=== PATIENT | female | born 1970 | race Caucasian/White ===

== ENCOUNTER 2022-12-03 17:27 | Emergency (ER) | payer BC ==
[~2022-12-03] VITALS: Ht 165.1 cm; Wt 83.9 kg
[2022-12-03 19:32] LABS: BASOPHILS % (AUTO) 0.2 % (0.0-5.0); EOSINOPHILS % (AUTO) 0.1 % (0.0-8.0); HEMATOCRIT 40.5 % (36-48); MEAN CORPUSCULAR HEMOGLOBIN 33.7 pg (27.0-33.0); MEAN CORPUSCULAR HGB CONC 34.6 g/dL (32.0-36.0); MEAN CORPUSCULAR VOLUME 97.6 fL (79-99); MONOCYTES % (AUTO) 4.9 % (3.0-13.0); NEUTROPHILS % (AUTO) 85.1 % (40.0-77.0); PLATELET COUNT (AUTO) 314 K/uL (130-400); RED BLOOD CELL COUNT(AUTO) 4.15 MIL/uL (4.00-5.50); RED CELL DISTRIBUTION WIDTH 12.5 % (11.0-15.5); WHITE BLOOD COUNT (AUTO) 17.4 K/uL (4.8-10.8)
[2022-12-03 19:41] LABS: CREATININE 0.9 mg/dL (0.5-1.5)
[2022-12-03 19:42] LABS: APPEARANCE,URINE CLOUDY (CLEAR); BILIRUBIN,URINE NEGATIVE (NEGATIVE); COLOR,URINE YELLOW (YELLOW); GLUCOSE, URINE (UA) NEGATIVE (NEGATIVE); KETONES,URINE NEGATIVE (NEGATIVE); LEUKOCYTE ESTERASE ,URINE 500 Leu/uL (NEGATIVE); NITRATE,URINE NEGATIVE (NEGATIVE); OCCULT BLOOD,URINE LARGE (NEGATIVE); PH,URINE 5.5 (5.0-8.0); PROTEIN,URINE 20 mg/dL (NEGATIVE); UROBILINOGEN,URINE 0.2 mg/dL (0.2-1.0)
[2022-12-03 19:45] LABS: ALBUMIN 3.7 g/dL (3.5-5.0); TOTAL PROTEIN, SERUM 7.5 g/dL (6.0-8.3)
[2022-12-03] MEDS ORDERED: CEPH500B PO (19:55)
[2022-12-03] MEDS ORDERED: HYDR28.32 TP (19:59)
[2022-12-03 20:00] LABS: BACTERIA,URINE MANY /HPF (None Seen); MUCUS,URINE FEW LPF (None Seen); SQUAMOUS EPITHELIAL CELL,UR MOD /HPF (0-2); WBC,URINE 26-50 /HPF (0-1)
[2022-12-03 20:02] LABS: B-TYPE NATRIURETIC PEPTIDE 19 pg/mL (0-100)
[2022-12-03] MEDS ORDERED: CLONIDINE HCL 0.1 MG TABLET PO ONE ×2 (21:00→22:30)
[2022-12-03 23:10] VITALS: BP 153/95
== END 2022-12-03 23:18 | disposition home or self-care (01) ==
LOC: EDH 17:29
DX: I10 Essential (primary) hypertension (principal); N39.0 Urinary tract infection, site not specified; L08.9 Local infection of the skin and subcutaneous tissue, unspecified; Z79.899 Other long term (current) drug therapy; Z90.49 Acquired absence of other specified parts of digestive tract; W57.XXXA Bitten or stung by nonvenomous insect and other nonvenomous arthropods, initial encounter
CPT/HCPCS: 36415; 80053; 81001; 83880; 84484; 85025; 87077; 87088; 87186; 93005